=== PATIENT | female | born 2000 | race Caucasian/White ===

== ENCOUNTER 2020-09-15 18:35 | Emergency (ER) | payer BC ==
[~2020-09-15] VITALS: Ht 160 cm; Wt 52.2 kg
--- NOTE | 2020-09-15 19:00 | NUR ---
ED Nurse Note: pt presents to ED for a medication refill of Venlafaxine ER 150mg one tablet daily and aripiprazole 5mg one tablet once a day. pt states that she has 1 day left of her meds, is visiting from out of town and does not currently have a PCP or psychiatrist for prescription refill
[2020-09-15] MEDS ORDERED: VENLAFAXINE HC150 MG ORAL ×2 (19:05→19:27)
[2020-09-15] MEDS ORDERED: ABILIFY5 MG ORAL (19:05)
[2020-09-15 19:10] VITALS: BP 111/75
--- NOTE | 2020-09-15 19:25 | Emergency Room Report ---
History of Present Illness General Chief Complaint: Medication Refill Source: Patient Present Illness HPI 19-year-old female with history of depression with psychotic feature here requesting a medication refill on venlafaxine and Abilify. Patient still have 1 more day worth of medication reports that recently moved to [place] has not established a primary doctor. Denies SI and HI. Is sitting comfortably stable signs. Denies . 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 COVID-19 Screening: Negative COVID-19 COVID-19 Testing Source: [employer] Patient History Past Medical History: see triage record Past Surgical History: none Pertinent Family History: none Last Menstrual Period: on period Now: No Immunizations: UTD Reviewed Nursing Documentation: PMH: Agreed; PSxH: Agreed Nursing Documentation-PMH Past Medical History: No History, Except For Hx Cardiac Problems: No Hx Hypertension: No Hx Pacemaker: No Hx Asthma: No Hx COPD: No Hx Diabetes: No Hx Cancer: No Hx Gastrointestinal Problems: Yes - GERD Hx Dialysis: No History Of Psychiatric Problem: Yes - Anxiety Hx Neurological Problems: No Hx Cerebrovascular Accident: No Hx Seizures: No Review of Systems All Other Systems: negative except mentioned in HPI Physical Exam Vital Signs Date Time Temp Pulse Resp B/P (MAP) Pulse Ox O2 Delivery O2 Flow Rate FiO2 09/15/20 18:58 98.1 77 16 111/75 (87) 96 Room Air Sp02 EP Interpretation: reviewed, normal General Appearance: well appearing, no apparent distress Head: normocephalic, atraumatic Eyes: bilateral eye normal inspection ENT: hearing grossly normal, normal voice Neck: full range of motion, supple Respiratory: lungs clear Cardiovascular #1: normal peripheral pulses Gastrointestinal: non-distended Musculoskeletal: gait/station normal, back normal Neurologic: alert, normal gait Psychiatric: mood/affect normal, no suicidal/homicidal ideation, no delusions Skin: no rash Lymphatic: no adenopathy Medical Decision Making PA Attestation All diagnoses and treatment plans were reviewed and discussed with my s upervising physician Dr. Mark Diagnostic Impression: Primary Impression: Encounter for medication refill Additional Impression: Major depression with psychotic features ER Course 19-year-old female with history of depression with psychotic feature here requesting a medication refill on venlafaxine and Abilify. Patient still have 1 more day worth of medication reports that recently moved to [place] has not established a primary doctor. Denies SI and HI. Is sitting comfortably stable signs. Denies . Ddx considered but are not limited to: generalized anxiety disorder, panic attack, depression with psychotic feature, bipolar disorder, drug overdose Vital signs: are WNL, pt. is afebrile H&PE are most consistent with: Medication refill for depression with psychotic features ORDERS: Venlafaxine and Abilify 1 month supply ED INTERVENTIONS: None required at this time. DISCHARGE: At this time pt. is stable for d/c to home. Will provide printed patient care instructions, and any necessary prescriptions. Care plan and follow up instructions have been discussed with the patient prior to discharge. Gave a list of mental facilities and primary care facilities for patient to follow-up with, take medication as directed, if worsening symptoms return to the emergency room Last Vital Signs Date Time Temp Pulse Resp B/P (MAP) Pulse Ox O2 Delivery O2 Flow Rate FiO2 09/15/20 18:58 98.1 77 16 111/75 (87) 96 Room Air Disposition: HOME, SELF-CARE Condition: Stable Scripts Venlafaxine Hcl* (VENLAFAXINE HCL ER*) 150 Mg Cap.er.24h 150 MG ORAL DAILY for Mood for 30 Days, #30 CAP Prov: Miguel Ken 09/15/20 Aripiprazole* (ABILIFY*) 10 Mg Tablet 0.5 TAB ORAL DAILY for 30 Days, #15 TAB Prov: Miguel Ken 09/15/20 Patient Instructions: Medicine Refill at the Emergency Department Miguel Ken Sep 15, 2020 19:25
[2020-09-15] MEDS ORDERED: ABILIFY10 MG ORAL (19:27)
--- NOTE | 2020-09-15 19:35 | NUR ---
ER DISCHARGE NOTE: Patient is cleared to be discharged per ERMD, pt is aox4, on room air, with stable vital signs. pt was given dc and prescription instructions, pt was able to verbalize understanding, pt id band removed without complications. pt provided with list of f/u clinics. pt is able to ambulate with steady gait. pt took all belongings.
[2020-09-15 19:36] VITALS: BP 111/75
== END 2020-09-15 19:35 | disposition home or self-care (01) ==
LOC: EMR 19:20
DX: F32.3 Major depressive disorder, single episode, severe with psychotic features (principal); Z76.0 Encounter for issue of repeat prescription; K21.9 Gastro-esophageal reflux disease without esophagitis; F41.9 Anxiety disorder, unspecified; Z91.011 Allergy to milk products; Z91.018 Allergy to other foods; Z91.013 Allergy to seafood
CPT/HCPCS: 99282